=== PATIENT | male | born 1970 | race Caucasian/White ===

== ENCOUNTER 2021-12-07 00:11 | Inpatient (IN) | payer BC ==
[~2021-12-07] VITALS: Ht 175.3 cm; Wt 95.3 kg
[2021-12-07] VITALS (7 sets, daily range): BP systolic 108–129
--- NOTE | 2021-12-07 00:12 | NUR ---
Patient triaged and placed in ED ROOM 3. VSS and patient appears in no acute distress at this time. MD Mayer notified of need for MSE. Report given to COLIN Herbert.
--- NOTE | 2021-12-07 00:15 | NUR ---
MD Teranaw at bedside.
[2021-12-07] MEDS ORDERED: MORPHINE 4 MG INJ. 4 MG/ML VIAL IVP ONE (00:31)
[2021-12-07] MEDS ORDERED: NITROGLYCERIN 1 INCH (GM) OINT. TP ONE (00:31)
[2021-12-07] MEDS ORDERED: ASPIRIN 325 MG TABLET PO ONE (00:45)
[2021-12-07 00:51] LABS: BASOPHILS # (AUTO) 0.1 K/uL (0.0-0.2); BASOPHILS % (AUTO) 1.1 % (0.0-2.0); EOSINOPHILS # (AUTO) 0.1 K/uL (0.0-0.4); EOSINOPHILS % (AUTO) 1.8 % (0.0-4.0); HEMOGLOBIN 14.6 g/dL (14.0-18.0); LYMPHOCYTES # (AUTO) 2.6 K/uL (1.0-5.5); LYMPHOCYTES % (AUTO) 34.9 % (20.5-51.5); MEAN CORPUSCULAR HEMOGLOBIN 29 pg (27-31); MEAN CORPUSCULAR HGB CONC 36 % (32-36); MEAN CORPUSCULAR VOLUME 83 fL (79.0-98.0); MONOCYTES # (AUTO) 0.4 K/uL (0.0-1.0); MONOCYTES % (AUTO) 5.2 % (1.7-9.3); NEUTROPHILS # (AUTO) 4.2 K/uL (1.8-7.7); PLATELET COUNT (AUTO) 175 K/uL (130-430); RED BLOOD CELL COUNT(AUTO) 4.96 MIL/uL (4.2-6.2); RED CELL DISTRIBUTION WIDTH 13.5 % (9.0-15.0); WHITE BLOOD COUNT (AUTO) 7.3 K/uL (4.8-10.8)
--- NOTE | 2021-12-07 01:08 | NUR ---
covid swab collected
--- NOTE | 2021-12-07 01:10 | NUR ---
BIBS F HOME W C/O CHEST PAIN. PT STATES HE HAD A HEART ATTACK 3 DAYS AGO. PMH: HIGH CHOL
--- NOTE | 2021-12-07 01:10 | NUR ---
ASA AND NITRO GIVEN, PT REFUSED MORPHINE, STATED HE IS NOT IN PAIN.
[2021-12-07 01:50] LABS: CHLORIDE 105 mmol/L (98-107); POTASSIUM 3.7 mmol/L (3.5-5.1); SODIUM SERUM 139 mmol/L (136-145)
[2021-12-07 01:51] LABS: ANION GAP 9 (5-15)
--- NOTE | 2021-12-07 02:34 | NUR ---
PROVIDED PT WITH PILLOW AND BLANKET. RESTING IN BED. REPORTS NO CHEST PAIN.
--- NOTE | 2021-12-07 02:55 | NUR ---
Admit bed requested Patient will be admitted to care of . Admitted to Tele unit. Diagnosis : [facility] Inpatient (Yes or No) Y Observation (Yes or No) Y Covid Status: PENDING From Home (Yes or if No enter name of facility) Y
[2021-12-07] MEDS ORDERED: MORPHINE 2 MG/ML INJ. SYRINGE IVP PRN ×3 (03:00→08:15)
[2021-12-07] MEDS ORDERED: ENOXAPARIN SODIUM 80 MG/0.8 ML SYRINGE SUBCUT ONE (03:00)
[2021-12-07 03:12] LABS: ALANINE AMINOTRANSFERASE 45 U/L (12-78); ASPARTATE AMINOTRANSFERASE 22 U/L (10-37); CALCIUM 8.7 mg/dL (8.4-11.0); CREATININE 1.06 mg/dL (0.55-1.30); GLUCOSE 133 mg/dL (70-99); TOTAL BILIRUBIN 0.4 mg/dL (0.0-1.0); UREA NITROGEN, BLOOD 13 mg/dL (8-21)
--- NOTE | 2021-12-07 04:39 | NUR ---
PT RESTING WITH EYES CLOSED, VISABLE RISE AND FALL OF CHEST, NO REPORTS OF PAIN CURRENTLY.
--- NOTE | 2021-12-07 05:20 | NUR ---
Patient will be admitted to care of [facility]. Admitted to TELE unit. Will go to room 101B. Belongings list completed. Complete and up to date summary report printed. SBAR report to be given at bedside with opportunity for questions.
--- NOTE | 2021-12-07 05:44 | NUR ---
Consultation Paged Reason for Consultation: AL Was consult called: Y Person who was notified: Nisa Consulting Physician: Dr. Espana Ordering Physician: Dr. Mcdonald
--- NOTE | 2021-12-07 06:30 | NUR ---
NOTE ADMISSION COMPLETED- PATIENT DECIDED TO LEAVE HIS PERSONAL BELONGINGS AT THE BEDSIDE, THIS RN TO EDUCATE PATIENT ON SECURITY PUTTING IT IN A SAFE AND HE VOICED "IT WOULD BE OK". PATIENT SAID HE HAD ABOUT $300-$400 IN HIS [place]LET BUT REFUSED TO LET THIS RN COUNT IT- CHARGE NURSE AWARE. THIS RN TO PRINT AND SIGN BELONGINGS LIST WITH PATIENT. WILL REPORT TO ONCOMING NURSE.
[2021-12-07] MEDS ORDERED: DOCUSATE SODIUM 100 MG CAPSULE PO PRN (08:15)
[2021-12-07] MEDS ORDERED: ONDANSETRON HCL 4 MG/2 ML VIAL IVP PRN (08:15)
[2021-12-07] MEDS ORDERED: NALOXONE HCL 0.4 MG/ML AMP (NARCAN) IVP PRN ×2 (08:15)
[2021-12-07] MEDS ORDERED: POTASSIUM CHLORIDE 20 MEQ TAB.PRT.SR PO PRN (08:15)
[2021-12-07] MEDS ORDERED: LORazepam 2 MG/ML VIAL IVP PRN (08:15)
[2021-12-07] MEDS ORDERED: MAGNESIUM SULFATE 50 ML IV PRN (08:15)
[2021-12-07] MEDS ORDERED: ZOLPIDEM TARTRATE 5 MG TABLET PO PRN (08:15)
[2021-12-07] MEDS ORDERED: ACETAMINOPHEN 325 MG TABLET PO PRN ×2 (08:15→10:00)
[2021-12-07] MEDS ORDERED: MUPIROCIN 2% TOPICAL OINTMENT 22 GM NS PRN (08:15)
[2021-12-07] MEDS ORDERED: ATORVASTATIN 20 MG TABLET PO SCH (09:00)
[2021-12-07] MEDS: ASPIRIN 81 MG TAB.CHEW PO SCH (11:10)
[2021-12-07] MEDS: ENOXAPARIN SODIUM 40 MG/0.4 ML SYRINGE SUBCUT SCH (11:11)
[2021-12-07] MEDS: ATORVASTATIN 20 MG TABLET PO SCH (11:11)
[2021-12-07] MEDS: ALLOPURINOL 100 MG TABLET (ZYLOPRIM) PO SCH (12:28)
--- NOTE | 2021-12-08 01:10 | NUR ---
CRITICAL TROPONIN REPORTED TO THIS RN AT 85. CHARGE NURSE AWARE AND CARDIOPULMONARY TECHNOLOGIST CHIEF DR. ELOISA RIVERA.
[2021-12-08 04:00] VITALS: BP_SYST 123
--- NOTE | 2021-12-08 05:05 | NUR ---
STILL AWAITING FOR DR. AMIN TO RETURN MY CALL. PAGED AGAIN AT THIS TIME AND WAS NOTIFIED OF THE CRITICAL TROPONIN OF 85 AND HE VOICED "OK- NO NEW ORDERS". WILL REPORT TO ONCOMING NURSE.
[2021-12-08 07:00] VITALS: BP_SYST 131
[2021-12-08 07:26] LABS: BASOPHILS # (AUTO) 0.1 K/uL (0.0-0.2); BASOPHILS % (AUTO) 0.9 % (0.0-2.0); EOSINOPHILS # (AUTO) 0.1 K/uL (0.0-0.4); EOSINOPHILS % (AUTO) 1.2 % (0.0-4.0); HEMATOCRIT 40.7 % (36-54); HEMOGLOBIN 14.7 g/dL (14.0-18.0); LYMPHOCYTES # (AUTO) 1.8 K/uL (1.0-5.5); LYMPHOCYTES % (AUTO) 23.2 % (20.5-51.5); MEAN CORPUSCULAR HEMOGLOBIN 30 pg (27-31); MEAN CORPUSCULAR HGB CONC 36 % (32-36); MEAN CORPUSCULAR VOLUME 83 fL (79.0-98.0); MONOCYTES # (AUTO) 0.4 K/uL (0.0-1.0); MONOCYTES % (AUTO) 5.1 % (1.7-9.3); NEUTROPHILS # (AUTO) 5.4 K/uL (1.8-7.7); NEUTROPHILS % (AUTO) 69.6 % (40.0-70.0); PLATELET COUNT (AUTO) 156 K/uL (130-430); RED BLOOD CELL COUNT(AUTO) 4.93 MIL/uL (4.2-6.2); RED CELL DISTRIBUTION WIDTH 13.5 % (9.0-15.0); WHITE BLOOD COUNT (AUTO) 7.7 K/uL (4.8-10.8)
[2021-12-08 08:00] VITALS: BP_SYST 131
[2021-12-08 08:25] LABS: CALCIUM 9.2 mg/dL (8.4-11.0); CREATININE 0.96 mg/dL (0.55-1.30); POTASSIUM 3.8 mmol/L (3.5-5.1); THYROID STIMULATING HORMONE 4.56 uIu/mL (0.36-3.74)
[2021-12-08] MEDS: ATORVASTATIN 20 MG TABLET PO SCH (08:35)
[2021-12-08] MEDS: ASPIRIN 81 MG TAB.CHEW PO SCH (08:35)
[2021-12-08] MEDS: ALLOPURINOL 100 MG TABLET (ZYLOPRIM) PO SCH (08:35)
[2021-12-08] MEDS ORDERED: METO25TA3 PO (08:36)
[2021-12-08] MEDS ORDERED: ASPI-1393 PO (08:36)
[2021-12-08] MEDS: ENOXAPARIN SODIUM 40 MG/0.4 ML SYRINGE SUBCUT SCH (08:36)
[2021-12-08] MEDS ORDERED: METOPROLOL SUCCINATE 25 MG TAB.SR.24H (TOPROL XL) PO ONE (09:15)
[2021-12-08 12:23] VITALS: BP_SYST 131
--- NOTE | 2021-12-08 13:13 | NUR ---
PATIENT DC PAPER READ AND SIGNED BY PATIENT. ALL BELONGINGS TAKEN BY THE PATIENT. NO S/S OF PAIN OR DISCOMFORT AT THE MOMENT.
[2021-12-09] MEDS ORDERED: METOPROLOL SUCCINATE 25 MG TAB.SR.24H (TOPROL XL) PO SCH (09:00)
== END 2021-12-08 12:35 | disposition home or self-care (01) | DRG 282 ==
LOC: SED 00:11 → STU 02:49
PROVIDERS: ADMIT General Practice; ATTEND General Practice
DX: I21.4 Non-ST elevation (NSTEMI) myocardial infarction (principal); M10.9 Gout, unspecified; E78.5 Hyperlipidemia, unspecified; I25.5 Ischemic cardiomyopathy; Z20.822 Contact with and (suspected) exposure to COVID-19; I51.7 Cardiomegaly; Z79.899 Other long term (current) drug therapy; Z72.0 Tobacco use; I25.2 Old myocardial infarction
CPT/HCPCS: 36415; 71045; 80048; 80053; 80061; 83036; 83735; 83880; 84443; 84484; 85025; 93005; 93306; 96372; 99285; G0378; J1650; J2270